=== PATIENT | female | born 2000 ===

== ENCOUNTER 2022-12-09 21:02 | Observation (INO) | payer OTHER ==
[~2022-12-09] VITALS: Wt 42.3 kg
[2022-12-09 23:54] VITALS: BP 101/64
--- NOTE | 2022-12-10 04:06 | NUR ---
END OF SHIFT SUMMARY PT ARRIVED TO 3 MED AT 2345. 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 PT WC BOUND AT BASELINE. NKA, VSS, AFEBRILE. PT A&O x2. PT STATED THAT SHE FELL OUT OF HER CAR WHILE ATTEMPTING TO GET OUT. PT HAS BEEN LIVING IN HER CAR WITH HER NOW EXBOYFRIEND. PT ADMITTED TO UNIT FOR ELEVATED TROPONIN LEVELS. PT CURRENTLY ON TELEMETRY, SINUS RHYTHM IN THE 70'S. NO C/O CHEST PAIN. RESP EVEN AND UNLABORED. NO C/O PAIN OR DISCOMFORT. PT ABLE TO MAKE NEEDS KNOWN. CALL LIGHT WITHIN REACH, WCTM.
[2022-12-10 04:21] VITALS: BP 111/77
[2022-12-10 04:26] LABS: Hematocrit 40.4 % (33.0-51.0); Hemoglobin 13.8 g/dL (11.5-16.0); Mean Corpuscular HGB 29.2 pg (26.0-34.0); Mean Corpuscular HGB Conc 34.2 g/dL (31.5-36.5); Mean Corpuscular Volume 85 fL (80-100); Mean Platelet Volume 11.7 fL (9.1-12.4); Platelet Count 181 K/mm3 (150-400); RDW Coefficient Variation 14.8 % (11.7-14.2); RDW Standard Deviation 45.5 fL (35.1-46.3); Red Blood Cell Count 4.73 M/mm3 (3.80-5.20); White Blood Cell Count 8.61 K/mm3 (4.00-11.30)
[2022-12-10 04:50] LABS: Albumin, Blood 3.3 g/dL (3.4-5.0); Albumin/Globulin Ratio 1.1 (0.8-1.8); Bilirubin, Total 3.3 mg/dL (0.1-1.0); Bun/Creatinine Ratio 25.9 (12.0-20.0); Calcium, Blood 8.5 mg/dL (8.5-10.1); Creatinine, Blood 0.5 mg/dL (0.40-1.00); Globulin, Blood 3.1 g/dL (2.2-4.0); Potassium, Blood 3.5 mmol/L (3.5-5.5); Total Protein, Blood 6.4 g/dL (6.4-8.2)
--- NOTE | 2022-12-10 05:10 | NUR ---
LAB [facility] HEMATOLOGY CALLED WITH LATEST TROP LEVEL: 196. CONTINUES TO TREND DOWN. WILL CONTINUE TO MONITOR
[2022-12-10 07:34] VITALS: BP 95/62
[2022-12-10 12:49] LABS: U Amphetamine Screen Not Detected; U Barbituate Screen Not Detected; U Benzodiazapine Screen Not Detected; U Buprenorphine Screen Not Detected; U Cannabinoids Screen DETECTED; U Cocaine Screen Not Detected; U Methadone Screen Not Detected; U Methamphetamine Screen Not Detected; U Opiates Screen Not Detected; U Oxycodone Screen Not Detected; U Phencyclidine Screen Not Detected; U Propoxyphene Screen Not Detected
--- NOTE | 2022-12-10 16:01 | NUR ---
SHIFT SUMMARY PATIENT HAD ECHO THIS SHIFT, WAITING FOR INTERPRETATION. SITE LEASING AGENT VISITED WITH PATIENT REGARDING SAFE DISCHARGE PLANNING, PATIENT REPORTEDLY NOT WILLING TO MAKE CHANGES AT THIS TIME, EDUCATION AND RESOURCES PROVIDED BY NURSING WELL. NO C/O PAIN OR DISCOMFORT AT THIS TIME, VSS. PATIENT ASKING TO LEAVE, DISCUSSED AMA AFTER CALLING DOC FOR ORDERS, DOC WAS NOT WILLING TO DISCHARGE AT THIS TIME. PATIENT STATED TO NEEDING TIME TO THINK AND WILL ALERT NURSING WITH DECISION. WILL CONTINUE TO MONITOR
--- NOTE | 2022-12-10 16:41 | NUR ---
AMA PATIENT INFORMED OF AMA RISKS VS BENEFITS, CHOOSING TO LEAVE AMA. DOC NOTIFIED. STATED SHE WILL CALL PATIENT IF ECHO SHOWS ANYTHING CONCERNING. BOYFRIEND TO BRING PATIENT'S WHEELCHAIR AND WILL TRANSPORT BACK TO CAR.
--- NOTE | 2022-12-10 19:56 | NUR ---
1909 NOTIFIED BY TAZ JACOBSON CHARGE NURSE THAT THIS PT IS GOING TO BE ASSIGNED TO ME- PT SIGNED AN AMA BUT UNABLE TO GET HER BOYFRIEND TO PICK HER UP- REPORT FROM [facility] RN- PT LAYING IN BED DURING BEDSIDE ROUNDS- 1914 PT BOYFRIEND ENTERED THE ROOM AND TOLD THE PT LETS GO NOW- SPOKE WITH THE PT AND SHE STATED, THAT SHE WANTED TO LEAVE-VERIFIED AMA SIGNED IN THE CHART- BOYFRIEND PICKED UP PT OUT OF BED AND PUT HER IN HOSPITAL WHEEL CHAIR- BELONGINGS WERE GIVEN TO HER AND HE LEFT WITH PT AND LEFT ROOM/FACILITY-
== END 2022-12-10 19:30 | disposition left against medical advice (07) ==
LOC: MEDS 21:02
PROVIDERS: ADMIT Internal Medicine
DX: R77.8 Other specified abnormalities of plasma proteins (principal); G11.11 Friedreich ataxia; F17.210 Nicotine dependence, cigarettes, uncomplicated
CPT/HCPCS: 36415; 80053; 84484; 85027; 85379; 93005; 93010; 93306; 96372; G0378; J1644